=== PATIENT | male | born 1995 | race Caucasian/White ===

== ENCOUNTER 2017-10-11 22:38 | Emergency (ER) | payer OTHER ==
[~2017-10-11] VITALS: Ht 177.8 cm; Wt 77.1 kg
[2017-10-11] MEDS ORDERED: IV NORMAL SALINE 1,000ML 1,000 ML IV SCH (22:50)
--- NOTE | 2017-10-11 22:56 | PHYS DOC ---
Past History Past Medical History: No Pertinent History Past Surgical History: Other Additional Past Surgical Histo: prior femur fracture requiring repair Smoking: Non-smoker Alcohol Use: Occasionally Drug Use: None Adult General Chief Complaint Chief Complaint: NAUSEA/VOMITING/[facility] HPI Patient is a pleasant otherwise healthy 22-year-old male who developed nausea vomiting diarrhea began this morning. 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 Patient describes crampy abdominal pain is diffuse and worse right before the episodes of bowel movement. Patient denies any UTI symptoms but has had urine decreased urinary output. Patient has had chills all day with no documented fevers he denies any recent travel outside the country, denies any over the counter medication usage or recent antibiotic usage. Patient's pain is moderate 7 of 10 at this point with no radiation to the chest. He does have some mild back pain that began after a vomiting episode when he said "" wrenched my back Review of Systems Review of Systems Constitutional: He has suffered from subjective fevers and chills. Eyes: Denies change in visual acuity, redness, or eye pain [] HENT: Denies nasal congestion or sore throat [] Respiratory: Denies cough or shortness of breath [] Cardiovascular: No additional information not addressed in HPI [] GI: He has suffered from diffuse abdominal pain with nausea and vomiting nonbilious nonbloody diarrhea nonmucoid on blood in it.[] : Denies dysuria or hematuria [] Musculoskeletal: Denies back pain or joint pain [] Integument: Denies rash or skin lesions [] Neurologic: Denies headache, focal weakness or sensory changes [] Endocrine: Denies polyuria or polydipsia [] All other systems were reviewed and found to be within normal limits, except as documented in this note. Physical Exam Physical Exam Constitutional: Well developed, well nourished, patient is pale and uncomfortable nondiaphoretic nontoxic in appearance. HENT: Normocephalic, atraumatic, bilateral external ears normal, oropharynx dry , no oral exudates, nose normal. [] Eyes: PERRLA, EOMI, conjunctiva normal, no discharge. [] Neck: Normal range of motion, no tenderness, supple, no stridor. [] Cardiovascular:Heart rate regular rhythm, no murmur [] Lungs & Thorax: Bilateral breath sounds clear to auscultation [] Abdomen: Hyperactive bowel sounds with no distention. He has tenderness throughout the belly with no specific guarding rebound or organomegaly is no Burkett's or McBurney's point tenderness to palpation. Skin: Warm, dry, no erythema, no rash. [] Back: She has tenderness along the ginna spinae bilaterally no midline tenderness no CVA tenderness. [] Extremities: No tenderness, no cyanosis, no clubbing, ROM intact, no edema. [] Neurologic: Alert and oriented X 3, normal motor function, normal sensory function, no focal deficits noted. [] Psychologic: Affect normal, judgement normal, mood normal. [] EKG EKG [] Radiology/Procedures Radiology/Procedures [] [address] [address] IMAGING REPORT Signed PATIENT: SARAH ODONNELL ACCOUNT: [id number] : 1995 LOCATION: ER AGE: 22 SEX: M EXAM STATUS: PRE ER ORD. PHYSICIAN: REMY HILLMAN MD REASON: nausea vomiting diarrhea PROCEDURE: CT ABD PELV W/ IV CONTRST ONLY CT abdomen and pelvis with contrast 10/11/2017 CLINICAL INDICATION: Abdominal pain, nausea and vomiting. COMPARISON: None. TECHNIQUE: Multiple CT images of the abdomen were obtained following the intravenous administration of iodinated contrast material. *One or more of the following individualized dose reduction techniques were utilized for this examination: 1. Automated exposure control. 2. Adjustment of the mA and/or kV according to patient size. 3. Use of iterative reconstruction technique. FINDINGS: Abdomen and pelvis: Heart size is normal. Visualized lung bases are clear. Liver, gallbladder, spleen, adrenal glands, pancreas and kidneys are unremarkable. Abdominal aorta is normal in caliber. Small and large bowel loops are normal in caliber without obstruction. There is liquid stool throughout the large bowel The appendix is visualized and is upper limits of normal in size measuring 0.6 cm series 2/image 50 with no periappendiceal stranding or edema. No pneumoperitoneum. There are no destructive osseous lesions. IMPRESSION: 1. Liquid colonic stool which may be due to nonspecific gastroenteritis. 2. Upper limits of normal appendix without periappendiceal stranding which is indeterminate between a normal appendix and early appendicitis. If persistent or progressive clinical symptomology for appendicitis, low threshold for repeat CT for evaluation of the appendix. Electronically signed by: Marva King MD (10/11/2017 11:39 PM) [facility] [place] DICTATED AND SIGNED BY: MARVA KING MD DATE: 10/11/17 2742 Course & Med Decision Making Course & Med Decision Making Pertinent Labs and Imaging studies reviewed. (See chart for details) he presents with nausea vomiting diarrhea with sick contacts at home with similar symptoms after eating at [employer] there is the suggestion he was exposed to bad food and this is a result of exposure. He has no focal tenderness in the right lower quadrant or right upper quadrant associated with food or position. He will have a CAT scan of his abdomen and pelvis because of the diffuse abdominal pain to ensure this is not a issue with his appendix Patient is still tachycardic at about 11:30 PM at night second lower liter of fluids as ordered patient is feeling better but still mildly nauseous. Patient' s CBC is unremarkable with exception of an elevated white blood cell count. Which is likely secondary to the gastritis is expressing. Patient also has normal CMP with normal electrolytes Patient likely with a viral gastroenteritis with sick contacts at home with similar symptoms. Recent CT scan again is unremarkable for signs of appendicitis. He has diffuse liquid stool throughout discharge: I've spoken with the patient and/or caregivers. I've explained the patient's condition, diagnosis and treatment plan based on information available to me at this time. I've answered the patient's and/or caregivers questions and addressed any concerns. The patient and/or caregivers have a good understanding the patient's diagnosis, condition and treatment plan as can be expected at this point. Vital signs have been stabilized. The patient's condition is stable for discharge from the emergency department. The patient will pursue further outpatient evaluation with her primary care provider or other designated consulting physician as outlined in the discharge instructions. Patient and/or caregivers are agreeable to this plan of care and follow-up instructions have been explained in detail. The patient and/or caregivers have received these instructions in written format and expressed understanding of these discharge instructions. The patient and her caregivers are aware that if any significant change in condition or worsening of symptoms should prompt him to immediately return to this of the closest emergency department. If an emergent department is not readily available I would encourage him to call 911. [] Dragon Disclaimer Dragon Disclaimer This electronic medical record was generated, in whole or in part, using a voice recognition dictation system. Departure Departure: Impression: Primary Impression: Nausea and vomiting Additional Impressions: Diarrhea Abdominal pain Disposition: HOME, SELF-CARE Condition: STABLE Referrals: UNKNOWN (PCP) Patient Instructions: Abdominal Pain (Nonspecific), Diarrhea, Nausea and Vomiting Additional Instructions: discharge: I've spoken with the patient and/or caregivers. I've explained the patient's condition, diagnosis and treatment plan based on information available to me at this time. I've answered the patient's and/or caregivers questions and addressed any concerns. The patient and/or caregivers have a good understanding the patient's diagnosis, condition and treatment plan as can be expected at this point. Vital signs have been stabilized. The patient's condition is stable for discharge from the emergency department. The patient will pursue further outpatient evaluation with her primary care provider or other designated consulting physician as outlined in the discharge instructions. Patient and/or caregivers are agreeable to this plan of care and follow-up instructions have been explained in detail. The patient and/or caregivers have received these instructions in written format and expressed understanding of these discharge instructions. The patient and her caregivers are aware that if any significant change in condition or worsening of symptoms should prompt him to immediately return to this of the closest emergency department. If an emergent department is not readily available I would encourage him to call 911. Scripts Metoclopramide Hcl (REGLAN) 10 Mg Tablet 1 TAB PO TID, #20 TAB Prov: REMY HILLMAN MD 10/12/17 Diphenoxylate Hcl/Atropine (LOMOTIL TABLET) 1 Each Tablet 1 TAB PO QID, #20 TAB Prov: REMY HILLMAN MD 10/12/17 Dicyclomine Hcl (BENTYL) 10 Mg Capsule 1 CAP PO TID, #15 CAP.EC Prov: REMY HILLMAN MD 10/12/17 Problem Qualifiers REMY HILLMAN MD Oct 11, 2017 22:56
[2017-10-11] MEDS ORDERED: ONDANSETRON PF 4 MG/2 ML VIAL. IV ONE (23:00)
[2017-10-11] MEDS ORDERED: 0.9 % SODIUM CHLORIDE 10 ML DISP.SYRIN. IV PRN (23:00)
[2017-10-11] MEDS ORDERED: KETOROLAC 30 MG/ML VIAL. IV ONE (23:00)
[2017-10-11] MEDS ORDERED: IOHEXOL 300 MG/ML 75 ML VIAL. IV ONE (23:00)
[2017-10-11] MEDS ORDERED: HYDROmorphone PF 1 MG/ML DISP.SYRIN IV/SQ PRN (23:00)
[2017-10-11] MEDS ORDERED: MORPHINE SULFATE 4 MG/ML DISP.SYRIN. IV ONE (23:15)
[2017-10-11] MEDS ORDERED: CONTRAST GIVEN MC PRN (23:15)
--- NOTE | 2017-10-11 23:42 | RAD ---
CT abdomen and pelvis with contrast 10/11/2017 CLINICAL INDICATION: Abdominal pain, nausea and vomiting. COMPARISON: None. TECHNIQUE: Multiple CT images of the abdomen were obtained following the intravenous administration of iodinated contrast material. *One or more of the following individualized dose reduction techniques were utilized for this examination: 1. Automated exposure control. 2. Adjustment of the mA and/or kV according to patient size. 3. Use of iterative reconstruction technique. FINDINGS: Abdomen and pelvis: Heart size is normal. Visualized lung bases are clear. Liver, gallbladder, spleen, adrenal glands, pancreas and kidneys are unremarkable. Abdominal aorta is normal in caliber. Small and large bowel loops are normal in caliber without obstruction. There is liquid stool throughout the large bowel The appendix is visualized and is upper limits of normal in size measuring 0.6 cm series 2/image 50 with no periappendiceal stranding or edema. No pneumoperitoneum. There are no destructive osseous lesions. IMPRESSION: 1. Liquid colonic stool which may be due to nonspecific gastroenteritis. 2. Upper limits of normal appendix without periappendiceal stranding which is indeterminate between a normal appendix and early appendicitis. If persistent or progressive clinical symptomology for appendicitis, low threshold for repeat CT for evaluation of the appendix. Electronically signed by: Mark King MD (10/11/2017 11:39 PM) [facility]
[2017-10-11 23:59] LABS: BASO % 0 % (0-3); EOS % 0 % (0-3); HEMATOCRIT 43.1 % (39.0-53.0); LYMPH # 0.5 x10^3/uL (1.0-4.8); LYMPH % 4 % (24-48); MEAN CORPUSCULAR HEMOGLOBIN 30 pg (25-35); MEAN CORPUSCULAR HGB CONC 35 g/dL (31-37); MEAN CORPUSCULAR VOLUME 87 fL (79-100); MONO # 0.8 x10^3/uL (0.0-1.1); MONO % 5 % (0-9); NEUT # 12.7 x10^3uL (1.8-7.7); NEUT % 90 % (31-73); PLATELET COUNT 195 x10^3/uL (140-400); RED BLOOD COUNT 4.98 x10^6/uL (4.30-5.70); RED CELL DISTRIBUTION WIDTH 12.7 % (11.5-14.5)
[2017-10-12 00:06] LABS: ALBUMIN 3.7 g/dL (3.4-5.0); CALCIUM 8.4 mg/dL (8.5-10.1); CREATININE 1.1 mg/dL (0.7-1.3); DIRECT BILIRUBIN 0.2 mg/dL (0.0-0.2); GFR 83.7; POTASSIUM 3.8 mmol/L (3.5-5.1); TOTAL BILIRUBIN 0.7 mg/dL (0.2-1.0); TOTAL PROTEIN 6.9 g/dL (6.4-8.2)
[2017-10-12] MEDS ORDERED: ONDANSETRON PF 4 MG/2 ML VIAL. IV ONE (00:15)
[2017-10-12] MEDS ORDERED: IV NORMAL SALINE 1,000ML 1,000 ML IV ONE (00:15)
[2017-10-12 00:22] LABS: % BANDS 24 % (0-9); % LYMPHS 9 % (24-48); % MONOS 4 % (0-10); % SEGS 63 % (35-66)
[2017-10-12 00:23] LABS: PLT ESTIMATE ADEQUATE (ADEQUATE)
[2017-10-12 00:24] LABS: TOXIC GRANULATION SLIGHT; TOXIC VACUOLATION SLIGHT
[2017-10-12] MEDS ORDERED: METO10TA81 PO (00:32)
[2017-10-12] MEDS ORDERED: DIPH1TAB PO (00:32)
[2017-10-12] MEDS ORDERED: DICY10CA53 PO (00:32)
[2017-10-12 00:54] VITALS: BP 94/50
[2017-10-12] MEDS ORDERED: ONDANSETRON 4MG ODT 4TABLET STARTPACK. PO ONE (01:00)
== END 2017-10-12 01:00 | disposition home or self-care (01) ==
LOC: ER 22:38
DX: R11.2 Nausea with vomiting, unspecified (principal); R10.84 Generalized abdominal pain; R19.7 Diarrhea, unspecified
CPT/HCPCS: 36415; 74177; 80048; 80076; 83690; 85007; 85025; 96361; 96374; 96375; 96376; 99285; J1885; J2270; J2405; Q0162; Q9967; J7030

== ENCOUNTER 2018-05-20 20:00 | Emergency (ER) | payer OTHER ==
[~2018-05-20] VITALS: Ht 177.8 cm; Wt 84.1 kg
[~2018-05-20 20:00] MED LIST: DICY10CA53 PO; DIPH1TAB PO; METO10TA81 PO
[2018-05-20 20:03] VITALS: BP 126/70
--- NOTE | 2018-05-20 20:07 | ED.ADGEN ---
Past History Past Medical History: No Pertinent History Past Surgical History: Other Additional Past Surgical Histo: prior femur fracture requiring repair Smoking: Non-smoker Alcohol Use: Occasionally Drug Use: None Adult General Chief Complaint Chief Complaint ".. 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 Pt. restrained and removed from cell, and in process got two head laceration. One superficial, and on 2.5 cm down to the skull. No current active bleeding. Also has abrasion to Lt. side face. Pt denies loss of consciousness, but was stunned. Currently mild head ache. Pt. denies other injury. Pt. up to date with vaccinations. Review of Systems Review of Systems Constitutional: Denies fever or chills [] Eyes: Denies change in visual acuity, redness, or eye pain [] HENT: Denies nasal congestion or sore throat []head lacerations and abrasions Respiratory: Denies cough or shortness of breath [] Cardiovascular: No additional information not addressed in HPI [] GI: Denies abdominal pain, nausea, vomiting, bloody stools or diarrhea [] : Denies dysuria or hematuria [] Musculoskeletal: Denies back pain or joint pain [] Integument: Denies rash or skin lesions [] Neurologic:Mild headache,. Denies focal weakness or sensory changes [] Endocrine: Denies polyuria or polydipsia [] All other systems were reviewed and found to be within normal limits, except as documented in this note. Family History Family History Noncontributory Current Medications Current Medications See nursing for home medications Allergies Allergies Allergies Coded Allergies Type Severity Reaction Last Updated Verified No Known Drug Allergies 10/11/17 No Physical Exam Physical Exam Constitutional: Well developed, well nourished, moderate acute distress, non- toxic appearance. [] HENT: Normocephalic, lacerations to scalp 2, 1 cm and one 2 cm laceration, scalp hematoma, bilateral external ears normal, oropharynx moist, no oral exudates, nose normal. []Abrasions to left side of face. Eyes: PERRLA, EOMI, conjunctiva normal, no discharge. [] Neck: Normal range of motion, no tenderness, supple, no stridor. [] Cardiovascular:Heart rate regular rhythm, no murmur [] Lungs & Thorax: Bilateral breath sounds clear to auscultation [] Abdomen: Bowel sounds normal, soft, no tenderness, no masses, no pulsatile masses. [] Skin: Warm, dry, no erythema, no rash. [] Back: No tenderness, no CVA tenderness. [] Extremities: No tenderness, no cyanosis, no clubbing, ROM intact, no edema. [] Old scar Rt. leg. Neurologic: Alert and oriented X 3, normal motor function, normal sensory function, no focal deficits noted. [] Psychologic: Affect normal, judgement normal, mood normal. [] Current Patient Data Vital Signs Vital Signs Date Time Temp Pulse Resp B/P (MAP) Pulse Ox O2 Delivery O2 Flow Rate FiO2 05/20/18 20:03 98.1 78 20 98 Room Air EKG EKG [] Radiology/Procedures Radiology/Procedures My interpretation of CT of head and neck show no obvious fracture, edema, bleed , mass, or shift. See formal report when available. Course & Med Decision Making Course & Med Decision Making Pertinent Labs and Imaging studies reviewed. (See chart for details)- Laceration clean with NS and peroxide. Polysporin applied. Pt declines suture or mery. Keep clean and dry. Polysporin 4 x day. Clean with peroxide if need. Head injury precautions. Follow up with primary. Return if any concerns. [] Final Impression Final Impression 1. Head Injury[] 2. Contusions 3. Abrasions left side of face 4. Lacerations Scalp 1 cm and 2 cm , with hematoma. 5. Concussion Dragon Disclaimer Dragon Disclaimer This electronic medical record was generated, in whole or in part, using a voice recognition dictation system. DELORES WATTS MD May 20, 2018 20:07
--- NOTE | 2018-05-20 20:55 | RAD ---
CT scan of the head without contrast 05/20/2018 Clinical History: Head injury. Laceration to the right parietal region. Dizziness. Technique: Unenhanced, contiguous, 5 mm axial sections were obtained through the head. One or more of the following individualized dose reduction techniques were utilized for this study: 1. Automated exposure control. 2. Adjustment of the mA and/or kV according to patient size. 3. Use of iterative reconstruction technique. Findings: No previous studies are available for comparison. The ventricles and sulci are within normal limits in size and configuration. No area of abnormal attenuation is seen involving the parenchyma. No extra-axial fluid collection is seen. No skull fracture is noted. IMPRESSION: Negative study. CT scan of the cervical spine without contrast 05/20/2018 Clinical history: Neck pain post injury. Technique: Unenhanced, contiguous, 0.625 mm axial sections were obtained through the cervical spine. Axial, coronal and sagittal reconstructed images were obtained. One or more of the following individualized dose reduction techniques were utilized for this study: 1. Automated exposure control. 2. Adjustment of the mA and/or kV according to patient size. 3. Use of iterative reconstruction technique. Findings: Sagittal and coronal reconstructed images demonstrate normal alignment of the cervical vertebrae. No fracture or subluxation cervical vertebrae is seen. Impression: No fracture or subluxation of the cervical vertebra is identified. Electronically signed by: Chandan Weiss MD (05/20/2018 8:51 PM) [facility]
[2018-05-20] MEDS ORDERED: BACI28.34 TP (20:57)
[2018-05-20] MEDS ORDERED: ACET500T68 PO ×2 (20:57)
== END 2018-05-20 21:07 | disposition home or self-care (01) ==
LOC: ER 20:00
DX: S06.0X0A Concussion without loss of consciousness, initial encounter (principal); S01.01XA Laceration without foreign body of scalp, initial encounter; W22.8XXA Striking against or struck by other objects, initial encounter; Y93.89 Activity, other specified; Y92.143 Cell of prison as the place of occurrence of the external cause; Y99.0 Civilian activity done for income or pay
CPT/HCPCS: 70450; 72125; 99284